=== PATIENT | male | born 1970 | race Two or more races ===

== ENCOUNTER 2025-07-04 08:31 | Emergency (ER) | payer SELFPAY ==
[2025-07-04 08:40] VITALS: PULSE 76; RESP 18; O2SAT 97; BMI 25.0
[2025-07-04 09:23] VITALS: BP 126/84; PULSE 78; RESP 20; TEMP 36.9; O2SAT 96
--- NOTE | 2025-07-04 09:27 | EKG_ITS ---
[facility] [place] [facility] Test Date: 2025-07-04 Pat Name: GENARO MCKEON Department: Room: - Gender: Male [employer]: : 1970 Requested By: Pavan Vogel Order Number: [id number] Reading MD: Pavan Vogel Measurements Intervals [place] Rate: 72 P: 57 ID: [id number] QRS: 84 QRSD: 82 T: 72 QT: 383 QTc: 421 Interpretive Statements SINUS RHYTHM No previous ECG available for comparison /store/S0/[id number].pdf
--- NOTE | 2025-07-04 09:28 | XR_ITS ---
Examination: CT brain head without contrast. 2-D sagittal coronal reconstructions Date and time of exam: July 04, 2025, 1056 hours INDICATIONS: Altered mental status with syncopal episodes today CTDI: vol (mGy): 52 DLP: (mGycm): 1027 Technique: Multiple CT axial sections of the brain have been obtained, 5 mm slice thickness. Contrast has not been administered. 2-D sagittal, coronal reconstructions have been obtained Low dose protocols were performed. One or more of the following dose reduction techniques were used; automated exposure control, adjustment of the mA and/or KV according to patient size, use of iterative reconstruction technique. Findings: No significant ventricular enlargement. Chronic pansinusitis Intra-axial or extra-axial hemorrhage density is not seen. No mass effect or midline shift Basal cisterns are not remarkable. Fourth ventricle is midline. Cranial vault intact. Impression: Negative for acute hemorrhage, mass effect or midline shift Advise clinical correlation and follow-up accordingly
--- NOTE | 2025-07-04 09:31 | EDNOTE_ITS ---
ED Syncope RME/HPI General Chief Complaint: Syncope / Near Syncope Stated Complaint: SYNCOPE Time Seen by Provider: 07/04/25 09:20 Arrival date/time: 07/04/25 08:31 RME / HPI RME / HPI narrative: 54 year old male with no stated medical history presents to the ED BIBA from work for evaluation following a syncopal episode today. Patient reports last night he had 9-10 episodes of nonbloody diarrhea accompanied by abdominal cramping. States this morning he felt dehydrated though still went to work. States while at work he was feeling dizzy and evidently lost consciousness and fell to the floor. Patient states he was told by coworkers he landed hard on the floor. In the ED, patient complains of a headache, feeling dehydrated, and globally weak. Otherwise no other associated symptoms reported. Denies fevers, chills, sweats, chest pain, cough, shortness of breath, abdominal pain, nausea, vomiting, or urinary symptoms. Related Data Allergies Allergy/AdvReac Type Severity Reaction Status Date / Time No Known Allergies Allergy Verified 07/04/25 08:49 Review of Systems Review of Systems Systems Reviewed: All systems reviewed, normal except as documented Past Medical History Social History SMOKING STATUS: Never smoker ED Exam Narrative Physical exam: Generally patient is alert and oriented x 3 and in no obvious distress, head is normocephalic atraumatic, neck shows no nuchal rigidity, heart regular rate and rhythm without murmurs rubs gallops or ectopy, lungs clear to auscultation equal bilaterally, abdomen soft nondistended nontender, neurologic exam Karen Coma Scale of 15 without focal motor deficit. Course Quality Measures none Orders Category Date Time Status EKG (ED ONLY) *Do not use* NOW Care 07/04/25 09:[address] head/brain wo con Stat Exams 07/04/25 09:28 Completed EKG (ED Only) Stat Exams 07/04/25 09:27 Draft CBC Stat Lab 07/04/25 10:05 Completed CMP [Comprehensive Metabolic Panel] Stat Lab 07/04/25 10:05 Completed Magnesium Stat Lab 07/04/25 10:05 Completed Sodium Chloride 0.9% 1000 ml [Ns] 1,000 ml Med 07/04/25 09:27 Discontinued IV 999 mls/hr Vital Signs Vital signs: Vital Signs Temperature 98.4 F 07/04/25 09:23 Pulse Rate 78 12/10/25 09:23 Respiratory Rate 20 07/04/25 09:23 Blood Pressure 126/84 07/04/25 09:23 Pulse Oximetry (%) 96 07/04/25 09:23 Oxygen Delivery Method Room Air 07/04/25 09:23 Pulse ox is 96% on room air which is adequate. Syncope MDM Narrative MDM Narrative:: Brabara Caraballo, edel scribing for and in the presence of Dr. Cisneros. I interpreted all labs. Lab work is completely unremarkable. Patient was kept on continuous cardiac monitoring throughout the entire ER stay without incident. EKG showed normal sinus rhythm at a rate of 72 without ischemic change or ectopy. CAT scan of the brain was negative. Patient has been having multiple episodes of diarrhea since yesterday. This may have contributed to the syncopal episode today. This syncopal episode did have an aura prior to the occurrence. It was not exertional syncope. Patient is stable for discharge and to return to work. Patient data External records reviewed:: [facility] previous records and EMS form Clinical information provided by:: patient Social determinants that could affect healthcare access:: none Patient has the following chronic illnesses:: None How is presenting disease/condition affected by chronic disease/condition?: no c hronic disease Evaluation data The following diagnostics were reviewed and interpreted by me:: lab results, radiology exam(s) and EKG tracing(s) Lab and/or radiology exams considered but not ordered:: None Interpretation Summary: Ordering Physician: Pavan Cisneros DO Date of Service: 07/04/25 Procedure(s): CT head/brain wo [facility] Accession Number(s): [id number] cc: Steve Jacobsen MD; NO PRIMARY/FAMILY,PHYSICIAN; Pavan Cisneros DO~ Examination: CT brain head without contrast. 2-D sagittal coronal reconstructions Date and time of exam: July 04, 2025, 1056 hours INDICATIONS: Altered mental status with syncopal episodes today CTDI: vol (mGy): 52 DLP: (mGycm): 1027 Technique: Multiple CT axial sections of the brain have been obtained, 5 mm slice thickness. Contrast has not been administered. 2-D sagittal, coronal reconstructions have been obtained Low dose protocols were performed. One or more of the following dose reduction techniques were used; automated exposure control, adjustment of the mA and/or KV according to patient size, use of iterative reconstruction technique. Findings: No significant ventricular enlargement. Chronic pansinusitis Intra-axial or extra-axial hemorrhage density is not seen. No mass effect or midline shift Basal cisterns are not remarkable. Fourth ventricle is midline. Cranial vault intact. Impression: Negative for acute hemorrhage, mass effect or midline shift Advise clinical correlation and follow-up accordingly Dictated By: Steve Jacobsen MD Signed By: <Electronically signed by Steve Jacobsen MD in [place]> 07/04/25 1115 Medications / Prescriptions Medications or Prescriptions considered but not ordered:: None Medication administrations:: Medication Administration History Discontinued Medications Sodium Chloride (Ns) 1,000 mls @ 999 mls/hr IV .Q1H1M ONE Stop: 07/04/25 10:27 See above Consultations Consultation(s) initiated? (list below): No Diagnosis Syncope Differential Diagnosis: syncope due to orthostatic hypotension, vasovagal syncope and dehydration Most likely diagnosis given after review of the tests above:: none Admission Indicated Admission indicated?: not indicated Admission Request Was there a request for admission?: No Disposition Plan Disposition Plan: Discharge Discharge Attestation Discharge Attestation: The patient and all family members were given an opportunity to ask questions and understood the discharge instructions. Discharge instructions specifically effects, indications for sooner follow up or return to the emergency department, and the expected course of current diagnosis. Patient condition: Stable Discharge Plan Plan Patient Disposition: HOME (Self Care) Prescriptions/Referrals Referrals: No Primary/Family,Physician [Primary Care Provider] - In 1 week Problem List Clinical Impression: Syncopal episodes Patient/Caregiver Discharge Instructions Education Materials: ED Fainting, Uncertain Cause Additional Instructions: Keep well-hydrated. Follow-up with your doctor. Return to ER as needed or if condition worsens. You are cleared to return to work. Print Language: Kazakh Stand Alone Forms: Herlinda Award Info., Patient Portal Info Letter
[2025-07-04 10:04] VITALS: BP 106/69; PULSE 72; RESP 18; TEMP 36.9; O2SAT 96
[2025-07-04 10:22] LABS: Basophils # (Auto) 0.0 Thou/mm3 (0.0-0.2); Basophils % (Auto) 0 % (0-2.5); Eosinophils # (Auto) 0.2 Thou/mm3 (0.0-0.5); Eosinophils % (Auto) 2 % (0-10); Hematocrit 47.2 % (41.0-53.0); Hemoglobin 16.1 g/dL (13.5-16.0); Immature Granulocytes Auto 0.03 Thou/mm3 (0.00-0.00); Lymphocytes # (Auto) 1.3 Thou/mm3 (1.0-4.8); Lymphocytes % (Auto) 13 % (10-50); Mean Corpuscular HGB Conc 34.1 g/dl (31.0-37.0); Mean Corpuscular Hemoglobin 31.3 pg (25.0-35.0); Mean Corpuscular Volume 92 fL (80-100); Monocytes # (Auto) 0.8 Thou/mm3 (0.0-0.8); Monocytes % (Auto) 8 % (0-12); Neutrophils # (Auto) 7.3 Thou/mm3 (1.8-7.7); Neutrophils % (Auto) 76 % (37-80); Nucleated Red Blood Cell # 0.00 Thou/mm3 (0.00-0.00); Nucleated Red Blood Cell % 0 /100 WBC (0); Platelet Count 290 Thou/mm3 (140-440); RDW Standard Deviation 46.3 fL (35.1-43.9); Red Blood Count 5.14 Miln/mm3 (4.50-5.90); White Blood Count 9.6 Thou/mm3 (3.8-10.6)
[2025-07-04 10:47] LABS: Alanine Aminotransferase 31 U/L (10-49); Albumin, Serum 5.0 gm/dL (3.5-5.0); Albumin/Globulin Ratio 1.8 (1.2-2.2); Alkaline Phosphatase 84 U/L (46-116); Anion Gap 9 (7-16); Aspartate Amino Transferase 19 U/L (0-34); BUN/Creatinine Ratio 12 Ratio (12-20); Bilirubin,Total 0.7 mg/dL (0.3-1.2); Blood Urea Nitrogen 12 mg/dL (9-23); Calcium 9.3 mg/dL (8.3-10.6); Calcium (Corrected) 9.3 mg/dL (8.5-10.1); Carbon Dioxide 27.1 mMol/L (20.0-31.0); Chloride 103 mMol/L (98-107); Creatinine (Component) 1.0 mg/dL (0.6-1.3); Estimated Creatinine Clearance 92.0 mL/min (>60); Globulin 2.8 gm/dL (2.3-3.5); Glucose 95 mg/dL (74-106); Magnesium 2.1 mg/dL (1.6-2.6); Osmolality,Calculated 277 (275-295); Potassium 4.0 mMol/L (3.4-5.1); Sodium 139 mMol/L (136-145); Total Protein 7.8 gm/dL (5.7-8.2); eGFR > 60 See Note
[2025-07-04] MEDS: SODIUM CHLORIDE 0.9% 1000 ML 1,000 ML 999 ML IV (11:24)
[2025-07-04 12:00] VITALS: BP 116/62; PULSE 70; RESP 18; TEMP 36.8; O2SAT 98
== END 2025-07-04 12:00 | disposition home or self-care (01) ==
PROVIDERS: Emergency Provider Emergency Medicine
DX: R55 Syncope and collapse (principal); R41.82 Altered mental status, unspecified
CPT/HCPCS: 36415; 70450; 80053; 83735; 85025; 93005; 96360; 96361; 99283; J7030